=== PATIENT | male | born 2005 | race Caucasian/White ===

== ENCOUNTER 2024-11-15 20:13 | Emergency (ER) | payer OTHER, SELFPAY ==
[2024-11-15] VITALS (12 sets, daily range): BP systolic 119–143; BP diastolic 70–79; PULSE 74–84; RESP 6–23; TEMP 36.7; O2SAT 97–100; BMI 23.4
--- NOTE | 2024-11-15 20:28 | ED.GENADULT ---
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 He says the episodes last seconds to minutes but tonight his left sided chest pain has been ongoing for the past 2 hours. He was not doing anything strenuous when it began. He describes it a sharp pain, non -radiating, . He states it comes and goes and it's gone at the moment. 18-year-old young man presenting to the emergency department with concern chest pain. 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 Sharp in mid left chest. Only able to reproduce discomfort at this point when he breathes in to about 75% capacity he guessed admits and with some extension of the back. No particular trauma. No sense of palpitations. He has not overtly short of breath otherwise. Nausea. No symptoms into the extremities as noted. No lightheadedness. Historically no particular exercise intolerance. Later described sneezing and coughing lately presumed related to allergies Related Data Home Medications ?Medication ?Instructions ?Recorded ?Confirmed finasteride 11/15/24 mirtazapine 15 mg tablet 15 mg PO DAILY 11/15/24 11/15/24 Allergies Allergy/AdvReac Type Severity Reaction Status Date / Time No Known Drug Allergies Allergy Verified 11/15/24 20:18 Review of Systems Status of ROS: Reports: 6 or more systems reviewed and unremarkable except as noted in History and below [facility] Social History Smoking Status: Never smoker Do you use any of these nicotine containing products: None Second hand tobacco smoke exposure: No How often do you have a drink containing alcohol: never How often do you have six or more drinks on one occasion: Never AUDIT-C Alcohol total score: 0 Non-prescribed substance use: denies use service: No Exam Narrative: Exam Narrative: Pleasant. Tall. NAD. Laughs easily. Breathing easily. Lungs are clear. A little discomfort demonstrated is takes deep breath. No swelling or rash erythema appreciated. Not really reproducible to palpation. No supraclavicular crepitus. Trachea midline. Well-perfused peripherally equal pulses. Lower extremities without edema. No pain to palpation of the calves. Abdomen is soft and nontender. Const: Vital Signs, click to edit/add: Vital Signs - 24 hr 11/15/24 20:19 11/15/24 20:51 11/15/24 20:52 Temperature 98.0 F Pulse Rate 75 75 Pulse Rate [Pulse Oximeter] 77 Respiratory Rate 18 14 6 L Blood Pressure 119/70 Blood Pressure [Ri ght Upper Arm] 143/79 H Pulse Oximetry 97 99 99 Oxygen Delivery Me thod Room Air 11/15/24 21:00 11/15/24 21:15 11/15/24 21:30 Temperature Pulse Rate 83 78 78 Pulse Rate [Pulse Oximeter] Respiratory Rate 14 11 L 10 L Blood Pressure Blood Pressure [Ri ght Upper Arm] Pulse Oximetry 100 99 99 Oxygen Delivery Me thod 11/15/24 21:45 11/15/24 22:00 11/15/24 22:15 Temperature Pulse Rate 81 84 77 Pulse Rate [Pulse Oximeter] Respiratory Rate 19 11 L 8 L Blood Pressure Blood Pressure [Ri ght Upper Arm] Pulse Oximetry 99 98 98 Oxygen Delivery Me thod 11/15/24 22:30 11/15/24 22:43 11/15/24 22:45 Temperature Pulse Rate 79 74 79 Pulse Rate [Pulse Oximeter] Respiratory Rate 17 10 L 23 Blood Pressure 125/75 Blood Pressure [Ri ght Upper Arm] Pulse Oximetry 98 98 97 Oxygen Delivery Me thod Documenting provider has reviewed patient's vital signs: yes Course Vital Signs Vital signs: Initial Vital Signs Temperature 98.0 F 11/15/24 20:19 Temperature Source Temporal Artery Scan 11/15/24 20:19 Pulse Rate 77 11/15/24 20:19 Pulse Rhythm Regular 11/15/24 20:19 Respiratory Rate 18 11/15/24 20:19 Blood Pressure 143/79 H 11/15/24 20:19 Blood Pressure Mean 100 11/15/24 20:19 Blood Pressure Position Sitting 11/15/24 20:19 Pulse Oximetry 97 11/15/24 20:19 Oxygen Delivery Method Room Air 11/15/24 20:19 Vital Signs Temperature 98.0 F 11/15/24 20:19 Pulse Rate 77 11/15/24 20:19 Respiratory Rate 18 11/15/24 20:19 Blood Pressure 143/79 H 11/15/24 20:19 Pulse Oximetry 97 11/15/24 20:19 Oxygen Delivery Method Room Air 11/15/24 20:19 Temperature 98.0 F 11/15/24 20:19 Pulse Rate 79 11/15/24 22:45 Respiratory Rate 23 11/15/24 22:45 Blood Pressure 125/75 11/15/24 22:43 Pulse Oximetry 97 11/15/24 22:45 Oxygen Delivery Method Room Air 11/15/24 20:19 Medical Decision Making MDM Narrative Medical decision making narrative: Does have pleuritic component to this discomfort. Unlikely to pulmonary embolus. Does not appear to be ischemic in nature either. Could be pleuritis. Later as he describes some coughing or sneezing likely allergy related, perhaps he did strain intercostal muscle. No significant trauma to suggest fracture. Pneumothorax would be a possibility. Doubtful pneumonia but also possible. Might find some atelectasis given a little splinting he is demonstrating here. Pericarditis? Not positional in presentation otherwise seems atypical. EKG is WNL as noted below. Did not feel that he needed anything for pain. Monitored cardiac rehabilitation specialist without event in the emergency department. Did discuss this screening for other differential and decided to proceed with further laboratory evaluation and ultimately a chest x-ray. Labs are reassuring without evidence ischemia and with normal D-dimer. CRP also normal. Chest x-ray one view independent reviewed by me is without pneumothorax. Normal cardiac silhouette. Did discuss this case with Cardiology given concern. Overall reassured particularly with normal CRP and without evidence of pericarditis. See patient discharge plan for further discussion Recommendations are to take 400 mg of ibuprofen 3 times daily, with a little food, over the next 4-5 days. Alternatively could take 375 mg naproxen twice daily over 4-5 days. Be seen if pain is persistent and worse, or not improved after a week, associated with increasing shortness of breath. Lab Data Lab results reviewed: Yes I reviewed the patient's lab results Labs: Lab Results 11/15/24 11/15/24 Range/Units 21:08 21:15 D-Dimer Quant (PE/DVT) < 0.27 (0.00-0.50) ug/ml Sodium 138 (135-149) mmol/L Potassium 4.3 (3.6-5.1) mmol/L Chloride 101 (96-114) mmol/L Carbon Dioxide 30 (20-32) mmol/L Anion Gap 7 (7-15) mEq/L BUN 20 (5-24) mg/dL Creatinine 1.0 (0.5-1.5) mg/dL Estimated Creat Clear 121.67 Estimated GFR 111 ml/min Glucose 103 (60-115) mg/dL Calcium 9.3 (8.4-10.6) mg/dL Troponin I < 0.01 (0.01-0.04) ng/mL C-Reactive Protein < 0.5 L (0.5-1.0) mg/dL POC Troponin I 0.00 L (0.01-0.04) ng/ml ECG Data Attestation: I personally reviewed and interpreted this ECG as follows: (Normal sinus rhythm at a rate of 75. No ischemic changes. Hyperdynamic) Discharge Plan Discharge Clinical Impression: Atypical chest pain, Precordial catch syndrome Patient Disposition: Home, Self-Care Condition: Improved Additional Instructions: Recommendations are to take 400 mg of ibuprofen 3 times daily, with a little food, over the next 4-5 days. Alternatively could take 375 mg naproxen twice daily over 4-5 days. Be seen if pain is persistent and worse, or not improved after a week, associated with increasing shortness of breath. Prescriptions: No Action mirtazapine 15 mg tablet 15 mg PO DAILY finasteride Follow Up/Referrals: Provider,Not a Local [Primary Care Provider, Family Practice] Stand Alone Forms: [facility] [employer] Info Instructions
[2024-11-15 21:31] LABS: Troponin, Point-of-Care* 0.00 ng/ml (0.01-0.04)
[2024-11-15 21:40] LABS: Chloride* 101 mmol/L (96-114); Potassium* 4.3 mmol/L (3.6-5.1); Sodium* 138 mmol/L (135-149)
[2024-11-15 21:44] LABS: Anion Gap 7 mEq/L (7-15); Blood Urea Nitrogen* 20 mg/dL (5-24); Calcium* 9.3 mg/dL (8.4-10.6); Carbon Dioxide* 30 mmol/L (20-32); Creatinine* 1.0 mg/dL (0.5-1.5); Est. Creatinine Clearance* 121.67; Estimated Glomerular Filt Rate 111 ml/min; Glucose* 103 mg/dL (60-115)
[2024-11-15 21:52] LABS: D Dimer Quantitative* < 0.27 ug/ml (0.00-0.50)
--- NOTE | 2024-11-15 22:22 | CRLHL7_ITS ---
For Patients: As a result of the Century Cures Act, medical imaging exams and procedure reports are released immediately into your electronic medical record. You may view this report before your referring provider. If you have questions, please contact your health care provider. INDICATION: Left-sided chest pain, somewhat pleuritic. TECHNIQUE: Chest 1 view. COMPARISON: None. FINDINGS: Cardiovascular: Heart size and pulmonary vasculature are within normal limits. Lungs and pleural spaces: The lungs are clear. No sign of pleural effusion. No pneumothorax identified. Bones and soft tissues: No significant findings. IMPRESSION: No acute cardiopulmonary findings. Dictated by Augusta Monterroso MD @ 11/15/2024 11:59:14 PM (Electronically Signed)
== END 2024-11-15 22:55 | disposition home or self-care (01) ==
PROVIDERS: Emergency Provider Family Medicine
DX: R07.89 Other chest pain (principal); R07.2 Precordial pain
CPT/HCPCS: 36415; 71045; 80048; 84484; 85379; 86140; 93005; 99284; 99285